=== PATIENT | male | born 1985 | race Caucasian/White ===

== ENCOUNTER 2018-09-06 22:43 | Emergency (ER) | payer SELFPAY ==
[~2018-09-06] VITALS: Ht 165.1 cm; Wt 80.3 kg
[2018-09-06 22:59] VITALS: BP 141/73
[2018-09-07 02:00] VITALS: BP 129/75
== END 2018-09-07 02:00 | disposition home or self-care (01) ==
LOC: MED 22:43
DX: G51.0 Bell's palsy (principal); Z86.73 Personal history of transient ischemic attack (TIA), and cerebral infarction without residual deficits
CPT/HCPCS: 70450; 99284